=== PATIENT | female | born 1990 | race Two or more races ===

== ENCOUNTER 2019-03-09 21:53 | Emergency (ER) | payer MEDICAID ==
[~2019-03-09] VITALS: Ht 165.1 cm; Wt 59.0 kg
[2019-03-09 22:14] VITALS: BP 130/84
== END 2019-03-09 23:30 | disposition left against medical advice (07) ==
LOC: ER 21:53
DX: R10.30 Lower abdominal pain, unspecified (principal); Z53.21 Procedure and treatment not carried out due to patient leaving prior to being seen by health care provider